=== PATIENT | female | born 1965 | race Caucasian/White ===

== ENCOUNTER 2018-04-20 10:10 | Inpatient (IN) | payer OTHER ==
[~2018-04-20] VITALS: Ht 157.5 cm; Wt 80.5 kg
[2018-04-20 10:23] VITALS: Ht 157.5 cm; Wt 80.5 kg
[2018-04-20 11:45] LABS: CALCIUM 9.3 mg/dL (8.5-10.1); CHLORIDE SERUM 99 mmol/L (98-107); GFR1 > 60 mL/min; GLUCOSE SERUM 98 mg/dL (74-106); POTASSIUM SERUM 3.6 mmol/L (3.5-5.1); SODIUM SERUM 139 mmol/L (136-145)
[2018-04-20 11:46] LABS: BASOPHIL % 0.5 % (0-2); PLATELET COUNT 187 x10^3mcL (130-400)
[2018-04-20 11:47] LABS: RED CELL DISTRIBUTION WIDTH 17.1 % (11.5-14.5)
[2018-04-20 11:50] LABS: ALBUMIN 4.2 g/dL (3.4-5.0); ALKALINE PHOSPHATASE 75 U/L (46-116); ALT/SGPT 41 U/L (14-59); AST/SGOT 30 U/L (15-37); BILIRUBIN TOTAL 0.4 mg/dL (0.20-1.00); TOTAL PROTEIN, SERUM 8.1 g/dL (6.4-8.2)
[2018-04-20] MEDS ORDERED: ATIVAN0.5 M1 PO (13:34)
[2018-04-20] MEDS ORDERED: HYDROCHLOROTHIA25 MG PO (13:34)
[2018-04-20 14:25] LABS: microscopic required? NO
[2018-04-20 14:46] LABS: urine erythrocyte NEGATIVE (NEGATIVE)
[2018-04-20 14:59] LABS: AMPHETAMINE QUAL UR NONE DETECTED (See below)
[2018-04-20 15:16] LABS: PHOSPHOROUS 4.1 mg/dL (2.5-4.9)
[2018-04-20 15:17] LABS: CHOLESTEROL/HDL RATIO 4.1
[2018-04-20 15:19] LABS: T3 TOTAL 0.37 ng/mL
[2018-04-20 15:26] LABS: FREE T4 0.2 ng/dL (0.76-1.46)
[2018-04-20 15:39] LABS: FREE THYROXINE INDEX 0.2 ug/dL (1.4-4.5); T4(THYROXINE) 0.7 ug/dL (4.7-13.3)
[2018-04-20 15:52] VITALS: BP 136/93
[2018-04-20 21:11] VITALS: BP 123/73
[2018-04-21 05:24] VITALS: BP 126/84
[2018-04-21 06:50] LABS: BASOPHIL % 0.5 % (0-2); CALCIUM 8.6 mg/dL (8.5-10.1); CARBON DIOXIDE 30.3 mmol/L (21-32); CREATININE SERUM 1.1 mg/dL (0.6-1.0); MAGNESIUM 2.2 mg/dL (1.8-2.4); PLATELET COUNT 185 x10^3mcL (130-400); POTASSIUM SERUM 3.2 mmol/L (3.5-5.1)
[2018-04-21 07:01] LABS: RED CELL DISTRIBUTION WIDTH 16.9 % (11.5-14.5)
[2018-04-21 07:24] VITALS: BP 116/78
[2018-04-21 11:49] VITALS: BP 130/79
[2018-04-21 17:00] VITALS: BP 138/102
[2018-04-21 20:39] VITALS: BP 111/55
[2018-04-22 05:37] VITALS: BP 126/89
[2018-04-22 06:36] LABS: CALCIUM 8.7 mg/dL (8.5-10.1); CARBON DIOXIDE 28.8 mmol/L (21-32); CHLORIDE SERUM 102 mmol/L (98-107); GFR1 > 60 mL/min; GLUCOSE SERUM 90 mg/dL (74-106); MAGNESIUM 2.2 mg/dL (1.8-2.4); PHOSPHOROUS 3.7 mg/dL (2.5-4.9); POTASSIUM SERUM 3.7 mmol/L (3.5-5.1); SODIUM SERUM 139 mmol/L (136-145)
[2018-04-22 06:38] LABS: BASOPHIL % 0.5 % (0-2); PLATELET COUNT 185 x10^3mcL (130-400)
[2018-04-22 06:58] LABS: T3 TOTAL 0.44 ng/mL
[2018-04-22 07:04] LABS: FREE T4 0.28 ng/dL (0.76-1.46)
[2018-04-22 07:19] LABS: RED CELL DISTRIBUTION WIDTH 17.2 % (11.5-14.5)
[2018-04-22 09:22] LABS: FREE THYROXINE INDEX 0.7 ug/dL (1.4-4.5); T4(THYROXINE) 2.7 ug/dL (4.7-13.3)
[2018-04-22 09:23] VITALS: BP 130/87
[2018-04-22] MEDS ORDERED: APR10 PO (12:37)
[2018-04-22] MEDS ORDERED: SYN125 PO (12:38)
[2018-04-22 12:52] VITALS: BP 130/87
== END 2018-04-22 14:00 | disposition home or self-care (01) | DRG 79 ==
LOC: ED 10:10 → DU 13:03
PROVIDERS: Emergency Medicine; ADMIT Family Medicine
DX: I67.4 Hypertensive encephalopathy (principal); I16.0 Hypertensive urgency; I10 Essential (primary) hypertension; F32.9 Major depressive disorder, single episode, unspecified; F41.1 Generalized anxiety disorder; E78.5 Hyperlipidemia, unspecified; E03.9 Hypothyroidism, unspecified; Z68.32 Body mass index [BMI] 32.0-32.9, adult; Z85.72 Personal history of non-Hodgkin lymphomas; Z92.3 Personal history of irradiation; Z91.14 Patient's other noncompliance with medication regimen
CPT/HCPCS: 83880; 84439; J0360; J1885; J2405; J3490; J7030; Q0092

== ENCOUNTER 2018-04-26 18:46 | Inpatient (IN) | payer OTHER ==
[~2018-04-26] VITALS: Ht 157.5 cm; Wt 79.5 kg
[~2018-04-26 18:46] MED LIST: APR10 PO; ATIVAN0.5 M1 PO; HYDROCHLOROTHIA25 MG PO; SYN125 PO
[2018-04-26 18:53] VITALS: Ht 157.5 cm; Wt 79.5 kg
[2018-04-26 21:02] LABS: BASOPHIL % 0.5 % (0-2); PLATELET COUNT 219 x10^3mcL (130-400)
[2018-04-26 21:13] LABS: ALBUMIN 4.4 g/dL (3.4-5.0); BILIRUBIN TOTAL 0.5 mg/dL (0.20-1.00); CALCIUM 9.5 mg/dL (8.5-10.1); CARBON DIOXIDE 29.6 mmol/L (21-32); CREATININE SERUM 1.2 mg/dL (0.6-1.0)
[2018-04-26 21:24] LABS: POTASSIUM SERUM 2.6 mmol/L (3.5-5.1); TOTAL PROTEIN, SERUM 8.5 g/dL (6.4-8.2)
[2018-04-26 21:48] LABS: AMPHETAMINE QUAL UR NONE DETECTED (See below)
[2018-04-26 23:25] VITALS: BP 157/98
[2018-04-26 23:50] LABS: MAGNESIUM 2.2 mg/dL (1.8-2.4); PHOSPHOROUS 3.7 mg/dL (2.5-4.9)
[2018-04-27 00:04] LABS: FREE T4 0.63 ng/dL (0.76-1.46); FREE THYROXINE INDEX 2.1 ug/dL (1.4-4.5); T4(THYROXINE) 7.7 ug/dL (4.7-13.3)
[2018-04-27 00:08] LABS: microscopic required? NO
[2018-04-27 00:17] LABS: T3 TOTAL 0.79 ng/mL
[2018-04-27 00:29] LABS: urine erythrocyte NEGATIVE (NEGATIVE)
[2018-04-27 06:12] VITALS: BP 143/87
[2018-04-27 06:30] LABS: CALCIUM 8.4 mg/dL (8.5-10.1); CARBON DIOXIDE 28.7 mmol/L (21-32); CHLORIDE SERUM 101 mmol/L (98-107); CREATININE SERUM 0.9 mg/dL (0.6-1.0); GFR1 > 60 mL/min; GLUCOSE SERUM 111 mg/dL (74-106); MAGNESIUM 2.7 mg/dL (1.8-2.4); PHOSPHOROUS 3.9 mg/dL (2.5-4.9); POTASSIUM SERUM 3.1 mmol/L (3.5-5.1); SODIUM SERUM 139 mmol/L (136-145)
[2018-04-27 06:34] LABS: BASOPHIL % 0.2 % (0-2); PLATELET COUNT 196 x10^3mcL (130-400); RED CELL DISTRIBUTION WIDTH 17.1 % (11.5-14.5)
[2018-04-27 08:50] VITALS: BP 135/84
[2018-04-27 13:02] VITALS: BP 151/100
[2018-04-27 17:55] VITALS: BP 143/86
[2018-04-27 20:53] VITALS: BP 122/60
[2018-04-28 05:09] VITALS: BP 104/70
[2018-04-28 06:38] LABS: CALCIUM 8.1 mg/dL (8.5-10.1); CARBON DIOXIDE 26.5 mmol/L (21-32); CHLORIDE SERUM 107 mmol/L (98-107); CREATININE SERUM 0.9 mg/dL (0.6-1.0); GFR1 > 60 mL/min; GLUCOSE SERUM 86 mg/dL (74-106); MAGNESIUM 2.3 mg/dL (1.8-2.4); PHOSPHOROUS 2.4 mg/dL (2.5-4.9); POTASSIUM SERUM 3.7 mmol/L (3.5-5.1); SODIUM SERUM 141 mmol/L (136-145)
[2018-04-28 06:44] LABS: BASOPHIL % 0.4 % (0-2); PLATELET COUNT 178 x10^3mcL (130-400)
[2018-04-28 07:08] LABS: RED CELL DISTRIBUTION WIDTH 17.2 % (11.5-14.5)
[2018-04-28] MEDS ORDERED: PROTONIX20 MG PO (09:44)
[2018-04-28 11:48] VITALS: BP 120/61
[2018-04-28 11:50] VITALS: BP 138/85
[2018-04-28 16:29] VITALS: BP 145/86
[2018-04-28] MEDS ORDERED: ZESTRIL20 MG PO (17:13)
== END 2018-04-28 17:15 | disposition home or self-care (01) | DRG 73 ==
LOC: ED 18:46 → DU 22:26
PROVIDERS: Emergency Medicine; Internal Medicine; ADMIT Internal Medicine
PROC: 0DB68ZX Excision of Stomach, Via Natural or Artificial Opening Endoscopic, Diagnostic (ICD-10-PCS; 2018-04-28)
PROC: 0DB48ZX Excision of Esophagogastric Junction, Via Natural or Artificial Opening Endoscopic, Diagnostic (ICD-10-PCS; principal; 2018-04-28 08:30)
DX: G90.9 Disorder of the autonomic nervous system, unspecified (principal); N17.0 Acute kidney failure with tubular necrosis; K59.09 Other constipation; E87.6 Hypokalemia; E86.0 Dehydration; E78.5 Hyperlipidemia, unspecified; I10 Essential (primary) hypertension; E03.9 Hypothyroidism, unspecified; F41.1 Generalized anxiety disorder; F32.9 Major depressive disorder, single episode, unspecified; D72.829 Elevated white blood cell count, unspecified; K31.89 Other diseases of stomach and duodenum; K44.9 Diaphragmatic hernia without obstruction or gangrene; K21.9 Gastro-esophageal reflux disease without esophagitis; Z92.3 Personal history of irradiation; Z68.31 Body mass index [BMI] 31.0-31.9, adult; Z85.72 Personal history of non-Hodgkin lymphomas
CPT/HCPCS: 43239; 83880; 84439; J0500; J1200; J1610; J2250; J2310; J3010; J3475; J3480; J3490; J7030; Q0092

== ENCOUNTER 2018-12-05 11:08 | Emergency (ER) | payer OTHER ==
[~2018-12-05] VITALS: Ht 160 cm; Wt 68.0 kg
[~2018-12-05 11:08] MED LIST changes: +PROTONIX20 MG PO; +ZESTRIL20 MG PO
[2018-12-05 11:10] VITALS: Ht 160 cm; Wt 68.0 kg
[2018-12-05 12:14] LABS: BASOPHIL % 0.5 % (0-2); PLATELET COUNT 171 x10^3mcL (130-400)
[2018-12-05 13:01] LABS: CALCIUM 8.5 mg/dL (8.5-10.1); CHLORIDE SERUM 108 mmol/L (98-107); CREATININE SERUM 0.7 mg/dL (0.6-1.0); GFR1 > 60 mL/min; GLUCOSE SERUM 102 mg/dL (74-106); POTASSIUM SERUM 4.4 mmol/L (3.5-5.1); SODIUM SERUM 144 mmol/L (136-145)
[2018-12-05 13:25] VITALS: BP 106/69
== END 2018-12-05 13:25 | disposition home or self-care (01) ==
LOC: ED 11:08
PROVIDERS: Emergency Medicine
DX: S00.03XA Contusion of scalp, initial encounter (principal); M54.2 Cervicalgia; F41.9 Anxiety disorder, unspecified; F32.9 Major depressive disorder, single episode, unspecified; W01.198A Fall on same level from slipping, tripping and stumbling with subsequent striking against other object, initial encounter; Y93.01 Activity, walking, marching and hiking; Y92.89 Other specified places as the place of occurrence of the external cause; Y99.8 Other external cause status
CPT/HCPCS: 36415

== ENCOUNTER 2020-03-24 03:27 | Emergency (ER) | payer OTHER ==
[~2020-03-24] VITALS: Ht 157.5 cm; Wt 74.8 kg
[2020-03-24 03:32] VITALS: BP 137/83; Ht 157.5 cm; Wt 74.8 kg
== END 2020-03-24 07:59 | disposition home or self-care (01) ==
LOC: ED 03:27
DX: M79.10 Myalgia, unspecified site (principal); R05 Cough; I10 Essential (primary) hypertension; Z20.828 Contact with and (suspected) exposure to other viral communicable diseases
CPT/HCPCS: U0003

== ENCOUNTER 2020-03-29 23:01 | Emergency (ER) | payer OTHER | END 2020-03-30 01:00 | disposition left against medical advice (07) | LOC: ED 23:01 | DX: M79.10 Myalgia, unspecified site (principal); F43.0 Acute stress reaction ==